=== PATIENT | female | born 1995 | race African-American/Black ===

== ENCOUNTER 2025-04-21 06:32 | Emergency (ER) | payer OTHER, SELFPAY ==
[2025-04-21 06:33] VITALS: BP 125/61; PULSE 69; RESP 16; TEMP 36.1; O2SAT 100; BMI 31.9
--- NOTE | 2025-04-21 07:07 | EDS_ITS ---
HPI History of Present Illness Chief Complaint: Complaint Informant: patient Limited: language barrier Onset/Context/Timing Onset: Today Context: Sudden Onset Timing: Continuous Quality: Aching Location: Lower abdomen Worsened by: Walking, urination Relieved by: Drinking tea with carlos Narrative Narrative: Patient presents with abdominal pain and difficulty urinating that began this morning. Patient states it began suddenly when she woke up today. Patient describes her pain as aching. Patient states that it is over the lower abdomen. Patient states it radiates into her back. Patient states it is worse whenever she walks or tries to urinate. Patient states it gets better with drinking tea with carlos. Patient denies any fevers or chills. Patient denies any nausea or vomiting. Patient denies any dysuria or hematuria. PFSH PFSH Medical History no medical history no medical history Allergy/AdvReac Type Severity Reaction Status Date / Time No Known Allergies Allergy Verified 04/21/25 06:36 Family History no significant family his Surgical History no surgical history no surgical history Social History Smoking Status: Never smoker ROS ROS ED Constitutional Constitutional ED: Denies chills or fever(s) Eyes Eyes: Denies blurry vision or change in vision ENT ENT ED: Denies rhinorrhea or sore throat Cardiovascular Cardiovascular: Denies chest pain or palpitations Respiratory/Chest Respiratory/Chest: Denies cough or dyspnea Gastrointestinal Gastrointestinal: Denies nausea or vomiting Genitourinary Genitourinary ED: Denies dysuria or hematuria Musculoskeletal Musculoskeletal: Reports back pain; Denies neck pain Integumentary Reports rash; Denies abscess Neurologic Neurologic: Denies headache(s) or weakness Allergic/Immunologic Allergic/Immunologic ED: Denies mouth swelling or urticaria EXAM Physical Exam Const Vital Signs: 04/21/25 06:33 04/21/25 08:33 Temperature 97 F L 98.7 F Temperature Source Oral Oral Pulse Rate 69 57 L Respiratory Rate 16 16 Blood Pressure 125/61 H 125/53 H Blood Pressure Mean 82 77 Pulse Ox 100 100 Oxygen Delivery Method Room Air Room Air Positive well nourished and well developed General Appearance ED: well developed and NAD HEENT Reports moist mucous membranes Neck supple and no JVD Resp normal respiratory effort and clear to auscultation bilaterally Cardio regular rate and regular rhythm GI non-distended Palpation: soft and tender suprapubic; Negative for guarding or rebound tenderness present Neuro oriented x3, CN's II-XII intact bilaterally and no sensory deficits noted Sensorium / Orientation: alert Motor Exam: strength 5/5 throughout Psych mental status grossly normal MDM MDM MDM Narrative Medical decision making narrative: Differential diagnosis includes urinary tract infection, ectopic , ovarian cyst, diverticulitis, colitis, appendicitis, and viral illness. CBC will be obtained to assess for leukocytosis and anemia. Basic metabolic profile will be obtained to assess for electrolyte abnormality renal function. Urinalysis will be obtained to assess for urinary tract infection and hematuria. Serum hCG will be obtained to assess for . History & Record Review Additional record(s) reviewed:: No prior records Lab Data Attestation: I reviewed the patient's lab results. Lab results narrative: CBC was reviewed and was within normal limits. Basic metabolic profile was reviewed and was within normal limits. Serum hCG was reviewed and was negative. Urinalysis was reviewed and was within normal limits. Labs: Laboratory Results - last 24 hr 04/21/25 04/21/25 07:38 08:10 WBC 7.0 RBC 5.10 Hgb 13.6 Hct 42.6 MCV 83.5 MCH 26.7 L MCHC 31.9 L RDW Std Deviation 38.1 RDW Coeff of Yandel 12.4 Plt Count 217 MPV 11.4 Immature Gran % (Auto) 0.300 Neut % (Auto) 60.5 Lymph % (Auto) 30.2 [place] % (Auto) 7.3 Eos % (Auto) 1.3 Baso % (Auto) 0.4 Absolute Neuts (auto) 4.2 Absolute Lymphs (auto) 2.10 Nucleated RBC % 0 Sodium 137 Potassium 3.7 Chloride 106 Carbon Dioxide 21.8 Anion Gap 10 BUN 10 Creatinine 0.64 L Estim Creat Clear Calc 126.50 Est GFR (MDRD) Non-Af 123 BUN/Creatinine Ratio 15.7 Glucose 103 H Calcium 9.7 Serum , Qual NEGATIVE Urine Color Yellow Urine Clarity Clear Urine pH 6.5 Ur Specific [place] 1.010 Urine Protein Negative Urine Glucose (UA) Normal Urine Ketones Negative Urine Occult Blood Negative Urine Nitrite Negative Urine Bilirubin Negative Urine Urobilinogen Normal Ur Leukocyte Esterase Negative Urine RBC 0 SEEN Urine WBC 0 SEEN Ur Squamous Epith Cells 0-5 SEEN Urine Bacteria 0 SEEN Urine Mucus 0 SEEN Radiography Diagnostic Testing: Clinical Impression(s) from Imaging Studies Abdomen/Pelvis CT 04/21/25 08:57 IMPRESSION: Small amount of free fluid is seen in the cul-de-sac most likely physiologic in this patient's age. Follicles are seen in both ovaries. Reading Location: [place] [id number] CT scan of the abdomen and pelvis was obtained. There is a small amount of free fluid in the cul-de-sac. There is no other acute abnormality noted. This was interpreted by the radiologist and was also independently reviewed by myself. Treatment and Re-Evaluation :: Patient was given IV fluids. Patient was given a dose of Toradol here. Patient is feeling better on reevaluation. Patient was advised of her findings. Patient was instructed to take ibuprofen as needed for pain. Patient was instru cted to follow-up with her primary care physician in 5 to 7 days. Patient understood and was agreeable with the plan. All questions were answered Discharge Plan Triage Chief Complaint: Complaint ED Provider: Bhupinder Maldonado Dx/Rx/DC Orders Clinical Impression: Ovarian cyst, Abdominal pain Instructions: ED Ovarian Cyst Primary Care Provider: Care Physician,No Primary Referrals: [facility] Doctor,Out of [Non-Staff, Medical] - 5-7 Days Activity Restrictions/Additional Instructions: Your CAT scan showed that you likely had a ruptured ovarian cyst. Your blood work was normal. You may take ibuprofen as needed for pain. Follow-up with your primary care physician in 5 to 7 days for further evaluation. Print Language: [place] Creole Disposition Disposition: Home, Self Care
[2025-04-21 07:43] LABS: Mucous, Urine 0 SEEN /hpf (<or=2+); Red Blood Cells-Urine 0 SEEN /hpf (0-5)
[2025-04-21 08:19] LABS: Hematocrit 42.6 % (37-47); Hemoglobin 13.6 g/dL (12.0-15.0); Immature Granulocytes Count 0.020 X10^3/uL (0.0-0.0); Mean Corp Hgb Conc 31.9 g/dL (32-36); Mean Corpuscular Volume 83.5 fL (81-99); Mean Platelet Vol. 11.4 fl (6.2-12.0); NRBC Flagged by Analyzer 0 % (0-5); Platelet Count 217 K/mm3 (150-450); RBC Distribution Width CV 12.4 % (11.6-14.6); RBC Distribution Width SD 38.1 fl (35.1-43.9); Red Blood Count 5.10 M/mm3 (4.2-5.4); White Blood Count 7.0 K/mm3 (4.4-11.0)
[2025-04-21] MEDS: 0.9% Normal Saline (1000mL) 1,000 ML 999 ML IV (08:22)
[2025-04-21 08:33] VITALS: BP 125/53; PULSE 57; RESP 16; TEMP 37.1; O2SAT 100
[2025-04-21 08:36] LABS: Color, Urine Yellow (Yellow); Glucose, Dipstick Normal (Normal); Ketone-Dipstick Negative (Negative); Leukocyte Esterase-Dipstick Negative /ul (Negative); Nitrite-Dipstick Negative (Negative); Occult Blood-Urine Negative /ul (Negative); Protein-Dipstick Negative (Negative); Specific Gravity, Urine 1.010 (1.002-1.030); Urine Bilirubin Dipstick Negative (Negative)
[2025-04-21 08:37] LABS: Internal QC Validated? YES +Cl - CLEAR BKGD; Pregnancy, Serum, hCG Quali. NEGATIVE Negative; Record Kit Lot#, Serum Preg. 0000980607
[2025-04-21 08:42] LABS: Squamous Epithelial Cells - UA 0-5 SEEN /hpf (5-10)
--- NOTE | 2025-04-21 08:57 | CT_ITS ---
PROCEDURE: ABDOMEN/PELVIS WITHOUT CONT 04/21/2025 REASON FOR EXAM: ABDOMINAL PAIN Difficulty with urination. Rectal pain. TECHNIQUE: Procedure Code: CTABDPEL Modality: CT Procedure: ABDOMEN/PELVIS WITHOUT CONT Noncontrast technique limits evaluation of the abdominal and pelvic viscera. Coronal and Sagittal reconstruction series were provided. One or more dose reduction techniques were used (e.g., Automated exposure control, adjustment of the mA and/or kV according to patient size, use of iterative reconstruction technique). RADIATION DOSE SUMMARY: CTDlvol: 9.73 mGy DLP: 537.34 mGycm COMPARISON: None FINDINGS: Lung bases: Lung bases are clear. Liver: Normal size. No obvious mass. Gallbladder: Unremarkable Spleen: Normal size. Pancreas: Normal size. No surrounding inflammation. Adrenals: Unremarkable Kidneys: No urolithiasis. No hydronephrosis. Bladder: The urinary bladder is distended. Reproductive Organs: Follicles are seen in both ovaries. Small amount of free fluid in the cul-de-sac. This may be related to the patient's menstrual phase. Bowel: Unremarkable Appendix: Unremarkable Lymph nodes: Unremarkable. Vasculature: The abdominal aorta and IVC contours are normal. Noncontrast technique limits evaluation. Peritoneum / Retroperitoneum: Small volume free fluid in the pelvis nonspecific and usually physiologic in a female patient of this age. Bones: Straightening of the normal lumbar lordosis. CT/Abdomen/Pelvis without Cont IMPRESSION: Small amount of free fluid is seen in the cul-de-sac most likely physiologic in this patient's age. Follicles are seen in both ovaries. Reading Location: [place] [id number]
[2025-04-21 09:15] LABS: Anion Gap 10 (5-15); BUN 10 mg/dL (4-19); BUN/Creat Ratio 15.7 RATIO (10-20); Calcium,Total 9.7 mg/dL (7.6-11.0); Carbon Dioxide 21.8 mmol/L (21.0-32.0); Chloride 106 mmol/L (98-108); Estimated Creatinine Clearance 126.50 ml/min (50-250); Glucose 103 mg/dL (70-99); Potassium 3.7 mmol/L (3.3-5.1)
[2025-04-21] MEDS: Ketorolac 30 MG/ML Syringe IV (09:36)
[2025-04-21 09:45] VITALS: BP 122/60; PULSE 76; RESP 15; TEMP 37.1; O2SAT 100
== END 2025-04-21 09:55 | disposition home or self-care (01) ==
PROVIDERS: Emergency Medicine; Emergency Provider Emergency Medicine; Visit Provider Emergency Medicine
DX: N83.209 Unspecified ovarian cyst, unspecified side (principal); R10.9 Unspecified abdominal pain
CPT/HCPCS: 74176; 80048; 81001; 84703; 85025; 96361; 96374; 99285; A4216